=== PATIENT | female | born 1960 | race Caucasian/White ===

== ENCOUNTER 2021-01-17 00:41 | Day surgery (SDC) | payer OTHER, SELFPAY ==
[2021-01-05 14:32] VITALS: BMI 47.7
[2021-01-17 10:56] VITALS: BP 142/97; PULSE 81; RESP 20; TEMP 36.3; O2SAT 97; BMI 46.9
--- NOTE | 2021-01-17 11:08 | WPDGICN ---
Assessment and Plan Assessment and plan (1) Encounter for screening colonoscopy: Code(s): Z12.11 - Encounter for screening for malignant neoplasm of colon Status: Acute Assessment and Plan: Patient presents today for screening colonoscopy. There are multiple cancers throughout her family. Further recommendations will be given after endoscopy. GI Consult Note Consult date/time: 01/17/21 11:08 HPI: Radha Morgan is a 60 year old female Presents for screening colonoscopy. Patient's current weight appetite and bowel movements are normal. Patient denies abdominal pain. She has had no blood in his stools. Family history is significant for various cancers throughout the family. There is no reported history of colon cancer. Patient herself was recently found to have uterine and ovarian cancer as well as a skin cancer on her head. She presents today for neoplasia screening colonoscopy. Review of Systems Review of Systems: All systems reviewed & are unremarkable except as noted in HPI and below PMFSH Past Medical History Medical History (Updated 01/17/21 @ 11:31 by Johnathan Aguila MD) Chronic a-fib HTN (hypertension) Hyperlipidemia Morbid obesity Surgical History Surgical History (Updated 01/17/21 @ 11:16 by Ricky Green MD) History of gastric bypass Social History Social History Smoking status: Never smoker Alcohol intake: former Substance use: never Substance use type: does not use Living arrangements: with family Spiritual care concerns: No Meds Home Medications and Allergies Home Medications Medication Instructions Recorded Confirmed Type Adults Multivitamin 1 cap PO DAILY 01/05/21 01/05/21 History ascorbic acid (vitamin C) 1 g PO DAILY 01/05/21 01/05/21 History cyanocobalamin (vitamin B-12) 1,000 mcg PO DAILY 01/05/21 01/05/21 History [Vitamin B-12] digoxin 125 mcg PO DAILY 01/05/21 01/05/21 History lisinopril 5 mg PO QPM 01/05/21 01/05/21 History metoprolol tartrate 50 mg PO BID 01/05/21 01/05/21 History pyridoxine (vitamin B6) [Vitamin 100 mg PO DAILY 01/05/21 01/05/21 History B-6] rivaroxaban [Xarelto] 20 mg PO QPM 01/05/21 01/05/21 History simvastatin 40 mg PO DAILY 01/05/21 01/05/21 History Allergies Allergy/AdvReac Type Severity Reaction Status Date / Time codeine Allergy Severe Swelling Verified 01/17/21 10:51 of Lip/Tongue/Throat Penicillins Allergy Severe Swelling Verified 01/17/21 10:51 of Lip/Tongue/Throat Vital Signs Vital Signs - 24 hr 01/17/21 10:56 Temperature 97.3 F L Pulse Rate 81 Respiratory Rate 20 Blood Pressure 142/97 H Pulse Oximetry 97 Exam Narrative: Physical exam reveals patient to be alert. Vital signs stable. HEENT exam is unremarkable. Patient is anicteric. Lungs are clear to auscultation and percussion. Heart is without murmur or extra sounds. Abdominal exam bowel sounds are present soft nontender with no organomegaly. Digital external rectal exam is normal.
[2021-01-17] MEDS: LACTATED RINGERS 1,000 ML 150 ML IV CONT (11:10)
--- NOTE | 2021-01-17 11:15 | WPDANESEPPF ---
Anes - Initial Pre Proc Eval Procedure: Operation Date: 01/17/21 11:30 Proposed Procedures p Screening Colonoscopy - Johnathan Aguila MD Date/Time: 01/17/21 11:15 Surgeon: Johnathan Aguila MD Pre Op Diagnosis: neoplasm screening Patient Data Age: 60 Gender: F Height: 1.63 m Weight: 124 kg Last Vital Signs Temp 36.3 C L 01/17/21 10:56 Pulse 81 01/17/21 10:56 Resp 20 01/17/21 10:56 BP 142/97 H 01/17/21 10:56 Pulse Ox 97 01/17/21 10:56 Allergies Allergy/AdvReac Type Severity Reaction Status Date / Time codeine Allergy Severe Swelling Verified 01/17/21 10:51 of Lip/Tongue/Throat Penicillins Allergy Severe Swelling Verified 01/17/21 10:51 of Lip/Tongue/Throat Home Medications Medication Instructions Recorded Confirmed Type Adults Multivitamin 1 cap PO DAILY 01/05/21 01/05/21 History ascorbic acid (vitamin C) 1 g PO DAILY 01/05/21 01/05/21 History cyanocobalamin (vitamin B-12) 1,000 mcg PO DAILY 01/05/21 01/05/21 History [Vitamin B-12] digoxin 125 mcg PO DAILY 01/05/21 01/05/21 History lisinopril 5 mg PO QPM 01/05/21 01/05/21 History metoprolol tartrate 50 mg PO BID 01/05/21 01/05/21 History pyridoxine (vitamin B6) [Vitamin 100 mg PO DAILY 01/05/21 01/05/21 History B-6] rivaroxaban [Xarelto] 20 mg PO QPM 01/05/21 01/05/21 History simvastatin 40 mg PO DAILY 01/05/21 01/05/21 History Patient hx anesthesia problems: none Family hx anesthesia problems: none Results Review: All pre-operative results and documents have been reviewed as part of the pre-operative evaluation. [facility] Past Medical History Medical History (Updated 01/17/21 @ 11:16 by Ricky Green MD) Chronic a-fib HTN (hypertension) Hyperlipidemia Morbid obesity Surgical History Surgical History (Updated 01/17/21 @ 11:16 by Ricky Green MD) History of gastric bypass Social History Social History Smoking status: Never smoker Alcohol intake: former Substance use: never Substance use type: does not use Living arrangements: with family Spiritual care concerns: No Anes - Eval Final PreProcedure Day of Procedure 01/17/21 11:15 Patient weight: morbidly obese Heart: irregular rhythm Lungs: clear to auscultation Airway: Mallampati scale class II Neurological: alert and oriented Last oral intake: >/= 8 hours ASA classification: III Emergent: no Anesthetic plan: proceed Anesthesia type and monitoring: general GIVS and standard monitoring Results Review: All pre-operative results and documents have been reviewed as part of the pre-operative evaluation. Informed Consent: The patient's anesthetic plan and its attendant risks and benefits were discussed with the patient/family/POA. Questions were solicited and answers provided to the satisfaction of the patient/family/POA.
[2021-01-17 12:08] VITALS: BP 116/54; PULSE 95; RESP 20; O2SAT 96
[2021-01-17 12:18] VITALS: BP 107/77; PULSE 90; RESP 19; O2SAT 97
[2021-01-17 12:28] VITALS: BP 136/87; PULSE 95; RESP 27; O2SAT 99
== END 2021-01-17 12:36 | disposition home or self-care (01) ==
PROVIDERS: Visit Provider Internal Medicine Gastroenterology
PROC: 0DJD8ZZ Inspection of Lower Intestinal Tract, Via Natural or Artificial Opening Endoscopic (ICD-10-PCS; CPT 45378; principal; 2021-01-17 11:30)
DX: Z12.11 Encounter for screening for malignant neoplasm of colon (principal); D12.2 Benign neoplasm of ascending colon; Z98.84 Bariatric surgery status
CPT/HCPCS: 45385; 88305; J2704; J7120